=== PATIENT | male | born 1995 | race Caucasian/White ===

== ENCOUNTER 2018-07-11 11:43 | Emergency (ER) | payer OTHER ==
[~2018-07-11] VITALS: Ht 175.3 cm; Wt 81.8 kg
[2018-07-11] MEDS ORDERED: KETOROLAC 30 MG/ML VIAL (J1885) IV ONE (13:30)
[2018-07-11] MEDS ORDERED: NS 1,000 ML IV ONE (13:30)
[2018-07-11] MEDS ORDERED: ONDANSETRON 4MG/2ML VIAL (J2405) IV ONE (13:30)
[2018-07-11 13:50] LABS: BASO % 0.4 % (0.0-1.0); EOS # 0.1 10^3/uL (0.0-0.50); HEMATOCRIT 44.1 % (42.0-52.0); HEMOGLOBIN 15.2 g/dl (13.5-17.5); LYMPH # 2.7 10^3/uL (1.5-6.5); LYMPH % 25.3 % (24.0-44.0); MEAN CORPUSCULAR HEMOGLOBIN 29.6 pg (27.0-33.0); MEAN CORPUSCULAR HGB CONC 34.5 g/dl (32.0-36.5); MONO # 0.7 10^3/uL (0.0-0.8); NEUTROPHILS # 7.2 10^3/uL (1.8-7.7); PLATELET COUNT, AUTOMATED 273 10^3/uL (150-450); RED BLOOD COUNT 5.13 10^6/uL (4.30-6.10); WHITE BLOOD COUNT 10.8 10^3/uL (4.0-10.0)
[2018-07-11 14:12] LABS: ALBUMIN 4.5 GM/DL (3.2-5.2); ALT/SGPT 25 U/L (12-78); BILIRUBIN,TOTAL 0.3 MG/DL (0.2-1.0); BLOOD UREA NITROGEN 23 MG/DL (7-18); CALCIUM LEVEL 9.2 MG/DL (8.5-10.1); CARBON DIOXIDE LEVEL 27 MEQ/L (21-32); CHLORIDE LEVEL 107 MEQ/L (98-107); CREATININE FOR GFR 0.91 MG/DL (0.70-1.30); GLUCOSE, FASTING 85 MG/DL (70-100); LIPASE 150 U/L (73-393); POTASSIUM SERUM 4.2 MEQ/L (3.5-5.1); SODIUM LEVEL 140 MEQ/L (136-145); TOTAL PROTEIN 7.1 GM/DL (6.4-8.2)
--- NOTE | 2018-07-11 14:18 | REP ---
CT abdomen and pelvis without IV or oral contrast: Renal stone protocol. History: Low back pain and hematuria. 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 Normal bowel gas pattern. The lung bases are clear on axial CT images. The liver and the spleen are normal in size and homogeneous in texture. Gallbladder and pancreas show no abnormality. No adrenal lesion is seen on either side. The kidneys appear morphologically intact. No intrarenal nephrolithiasis is seen. No hydronephrosis is observed on either side. No retroperitoneal mass or adenopathy is observed. A normal appendix is seen in the right lower quadrant. Urinary bladder is unremarkable. Seminal vesicles and prostate are unremarkable. There are multiple phleboliths in the pelvis bilaterally. Small and large intestinal bowel loops are normal in the abdomen and pelvis. No abdominal wall defect is seen. No bony destructive lesion is observed. Impression: Unremarkable CT study abdomen and pelvis without contrast. No urinary tract calculus seen. No hydronephrosis noted. Normal appendix. Electronically Signed by Mannie Jean Baptiste MD 07/11/2018 10:30 P
[2018-07-11 15:19] VITALS: BP 136/63
== END 2018-07-11 15:30 | disposition home or self-care (01) ==
LOC: M ED 11:43
DX: R31.9 Hematuria, unspecified (principal); R10.9 Unspecified abdominal pain; R11.0 Nausea; Z91.013 Allergy to seafood
CPT/HCPCS: 74176; 80053; 81001; 81002; 83690; 85025; 96374; 96375; 99284; J1885; J2405

== ENCOUNTER → 2018-10-24 | Outpatient (CLI) | payer OTHER ==
[~2018-10-24] MED LIST: PROHANCE 279.3MG/ML 15ML VIAL (A9576) As Ordered ONE
--- NOTE | 2018-10-24 15:42 | REP ---
MRA ABDOMINAL AORTA: MRA abdominal aorta and branches performed following the intravenous administration of 30 mL ProHance. MIP reconstruction images are performed. Abdominal aorta is normal in caliber with no aneurysm. Celiac and superior mesenteric arteries are patent with no stenosis. There is a single renal artery bilaterally. There is no renal artery stenosis. Angle between the origin of the superior mesenteric artery and the abdominal aorta is approximately 49 degrees which is within normal range. I do not see significant compression of the left renal vein. Therefore, there is no compelling evidence for nutcracker syndrome. Visualized liver, spleen, adrenals, pancreas and kidney appear unremarkable. I do not see evidence of adenopathy or free fluid in the abdomen. IMPRESSION: There appears to be a normal angle between the superior mesenteric artery and abdominal aorta with no significant compression of the left renal vein and no evidence of nutcracker syndrome. Electronically Signed by Taco Weaver MD 10/25/2018 01:06 P
== END ==
LOC: M RAD 12:57
PROVIDERS: ATTEND Internal Medicine Nephrology
DX: R31.9 Hematuria, unspecified (principal)
CPT/HCPCS: A9576; C8902

== ENCOUNTER 2020-09-12 12:00 | Day surgery (SDC) | payer OTHER ==
[~2020-09-12] VITALS: Ht 177.8 cm; Wt 80.3 kg
[~2020-09-12 12:00] MED LIST changes: +LORA-243 PO; -PROHANCE 279.3MG/ML 15ML VIAL (A9576) As Ordered ONE
[2020-09-12] MEDS ORDERED: NS 1,000 ML IV ONE (12:35)
[2020-09-12] MEDS ORDERED: propofoL 200 MG/20 ML VIAL As Ordered ONE ×2 (12:41→13:29)
[2020-09-12] MEDS ORDERED: LIDOCAINE 2% 100MG/5ML SDV (FOR ANES.) As Ordered ONE (12:41)
[2020-09-12] MEDS ORDERED: fentaNYL 100 MCG/2 ML INJECTION As Ordered ONE (12:43)
[2020-09-12 14:05] VITALS: BP 136/84
== END 2020-09-12 14:10 | disposition home or self-care (01) ==
LOC: M OPP 12:00
PROVIDERS: ATTEND Internal Medicine Gastroenterology
DX: K22.8 Other specified diseases of esophagus (principal); K31.89 Other diseases of stomach and duodenum; K29.70 Gastritis, unspecified, without bleeding; R10.13 Epigastric pain; Z91.013 Allergy to seafood
CPT/HCPCS: 43239; 88305; J3010